=== PATIENT | female | born 1950 | race African-American/Black ===

== ENCOUNTER → 2017-02-03 | Outpatient (CLI) | payer MEDICARE, MEDICAID ==
--- NOTE | 2017-02-03 14:12 | RADRPT ---
PROCEDURE: XR bilateral knees. CLINICAL INDICATION: Knee pain TECHNIQUE: AP weightbearing, PA weightbearing, lateral weightbearing views of each knee are availa ble for review. COMPARISON: None available FINDINGS: There is severe osteoarthrosis involving the right and left medial tibial femoral compartment, later al tibial femoral compartment and patellofemoral compartment. This is associated with joint space na rrowing, subchondral sclerosis and osteophytosis. There is otherwise normal mineralization, architecture and alignment. No fractures are identified. No osseous lesions are identified. The soft tissues are unremarkable. IMPRESSION: Severe osteoarthrosis involving the right and left medial tibial femoral compartments, lateral tibia l femoral compartments and patellofemoral compartments. RPTAT: [facility] .Paul Man MD, MD Date Time Electronically viewed and signed by .Paul Man MD, on 02/03/2017 14:12 .B/
== END | disposition home or self-care (01) ==
LOC: HKI 11:36
PROVIDERS: ATTEND Orthopaedic Surgery
DX: M17.0 Bilateral primary osteoarthritis of knee (principal); I10 Essential (primary) hypertension; F41.9 Anxiety disorder, unspecified; F17.200 Nicotine dependence, unspecified, uncomplicated
CPT/HCPCS: G0463